=== PATIENT | female | born 1980 | race African-American/Black ===

== ENCOUNTER 2018-01-07 07:36 | Emergency (ER) | payer BC ==
[~2018-01-07] VITALS: Ht 167.6 cm; Wt 127.0 kg
[~2018-01-07 07:36] MED LIST: AMOXICILLIN875 MG PO; AUGMENTIN 875875 M1 PO; AZITHROMYCIN 2250 MG PO; BACTRIM DS TAB1 EACH PO; CARISOPRODOL 3350 MG PO; CLARITIN10 MG; CLARITIN10 MG PO; FLEXERIL PO; FLONASE 0.05%50 MCG NASAL; HYDROCODONE-AP1 EA10 PO; IBUPROFEN 600600 M1; IBUPROFEN 600600 M1 PO; IBUPROFEN 800800 M1 GT; IBUPROFEN 800800 MG PO; IRON325; KEFLEX500 M1 PO; KEPPRA 500 MG500 M1; LISINOPRIL; LORTAB 7.5/5001 TA1 PO; MEDROLDOSEPACK PO; NOHOMEMEDICATIONS; NORCO 5-325 TA1 EACH PO; OXCARBAZEPINE600 MG PO; PREDNISONE 20 M20 M1 PO; PROAIR HFA8.5 GM; PROAIR HFA8.5 GM IH; PROVENTIL HFA6.7 G1 INH; SULFACETAMIDE 115 M1 OP; TESSALON PERLE100 MG PO; TESSALON200 MG PO; ULTRAM 50MG TAB50 MG PO; VENTOLIN17 GM INH; ZOFRAN 4 MG ORAL4 MG PO; ZOFRAN4 MG PO; ZONEGRAN100 MG; ZPAK PO; ZYRTEC10 M2 PO
[2018-01-07] MEDS ORDERED: CEPACOL SORE T1 EAC8 PO (08:54)
[2018-01-07] MEDS ORDERED: TESSALON PERLE100 MG PO (08:54)
[2018-01-08] MEDS ORDERED: PREDNISONE 20 M20 MG PO (19:39)
[2018-01-08] MEDS ORDERED: VENTOLIN HFA 1818 GM INH (19:39)
== END 2018-01-07 09:09 | disposition home or self-care (01) ==
LOC: ER 07:36
DX: J02.8 Acute pharyngitis due to other specified organisms (principal); B97.89 Other viral agents as the cause of diseases classified elsewhere; I10 Essential (primary) hypertension; Z88.8 Allergy status to other drugs, medicaments and biological substances; Z90.49 Acquired absence of other specified parts of digestive tract

== ENCOUNTER 2018-01-08 18:43 | Emergency (ER) | payer BC ==
[~2018-01-08] VITALS: Ht 167.6 cm; Wt 127.0 kg
[~2018-01-08 18:43] MED LIST changes: +CEPACOL SORE T1 EAC8 PO
[2018-01-08] MEDS ORDERED: PREDNISONE 20 M20 MG PO (19:39)
[2018-01-08] MEDS ORDERED: VENTOLIN HFA 1818 GM INH (19:39)
== END 2018-01-08 19:52 | disposition home or self-care (01) ==
LOC: ER 18:43
DX: J02.9 Acute pharyngitis, unspecified (principal); B97.89 Other viral agents as the cause of diseases classified elsewhere; Z90.49 Acquired absence of other specified parts of digestive tract; Z88.8 Allergy status to other drugs, medicaments and biological substances

== ENCOUNTER 2018-02-12 22:48 | Emergency (ER) | payer BC ==
[~2018-02-12] VITALS: Ht 167.6 cm; Wt 127.0 kg
[~2018-02-12 22:48] MED LIST changes: +PREDNISONE 20 M20 MG PO; +VENTOLIN HFA 1818 GM INH
[2018-02-12] MEDS ORDERED: TESSALON PERLE100 MG PO (23:45)
[2018-02-12] MEDS ORDERED: FLOVENT HFA 4444 MCG INH (23:45)
[2018-02-12] MEDS ORDERED: PRILOSEC 20 MG20 MG PO (23:45)
[2018-02-13 00:56] VITALS: BP 123/78
== END 2018-02-13 00:56 | disposition home or self-care (01) ==
LOC: ER 22:48
DX: R05 Cough (principal); K21.9 Gastro-esophageal reflux disease without esophagitis; J45.909 Unspecified asthma, uncomplicated; Z90.49 Acquired absence of other specified parts of digestive tract; Z88.8 Allergy status to other drugs, medicaments and biological substances

== ENCOUNTER 2019-02-02 14:25 | Emergency (ER) | payer BC ==
[~2019-02-02] VITALS: Ht 167.6 cm; Wt 127.0 kg
[~2019-02-02 14:25] MED LIST changes: +FLOVENT HFA 4444 MCG INH; +PRILOSEC 20 MG20 MG PO
[2019-02-02] MEDS ORDERED: KEPPRA 500 MG500 MG PO (14:34)
[2019-02-02] MEDS ORDERED: FLONASE 0.05%50 MCG NASAL (16:37)
[2019-02-02 16:43] VITALS: BP 154/93
== END 2019-02-02 16:44 | disposition home or self-care (01) ==
LOC: ER 14:25
DX: H69.81 Other specified disorders of Eustachian tube, right ear (principal); J30.9 Allergic rhinitis, unspecified; Z88.1 Allergy status to other antibiotic agents; Z88.8 Allergy status to other drugs, medicaments and biological substances; Z79.899 Other long term (current) drug therapy; Z90.49 Acquired absence of other specified parts of digestive tract